=== PATIENT | female | born 1955 | race Caucasian/White ===

== ENCOUNTER 2022-04-04 00:29 | Emergency (ER) | payer MEDICARE, SELFPAY ==
[2022-04-04 00:29] VITALS: BP 154/92; PULSE 88; RESP 18; TEMP 36.2; O2SAT 99; BMI 31.1
--- NOTE | 2022-04-04 00:35 | CT_ITS ---
STUDY: CT HEAD STROKE PROTOCOL W/O CONTRAST INJECTION REASON FOR EXAM: Female, 66 years old. trauma/fall RADIATION DOSAGE (If Supplied By Facility): CTDIvol = ( 44.99 ) mGy, DLP = ( 866.41 ) mGycm TECHNIQUE: Transaxial CT imaging of the brain was performed without administration of intravenous contrast material. Individualized dose optimization techniques were used for this CT. COMPARISON: No relevant priors. FINDINGS: BRAIN: Normal samson/white matter differentiation. VENTRICLES: No hydrocephalus. EXTRA-AXIAL SPACES: No hemorrhages, fluid collections, or masses. CALVARIUM/SKULL BASE: Normal. FACE/SINUSES: Visualized portions normal. SOFT TISSUES: Right periorbital soft tissue swelling. OTHER: None. CT/Brain/Head without Contrast IMPRESSION: No intracranial hemorrhage or depressed calvarial fracture. Electronically Signed: Larry Saba MD at 1:19 EDT ,
[2022-04-04] MEDS: fentaNYL 100 MCG/2 ML Ampul 50 MCG IV (00:37)
--- NOTE | 2022-04-04 00:37 | ED.VIS.FALL ---
HPI HPI - Fall History of Present Illness Chief Complaint: Fall Informant: patient, family and EMS Limited: intoxicated Occured/Mechanism Occurred: Today (JPTA) Mechanism/Context: Yes slip Narrative: in gravel trying to get into car after drinking heavily Usually ambulates: Without assistance Pain/Injury Location: R upper arm Pain Location: face Quality of Pain: Throbbing Current Severity: Severe Maximum Severity: Severe Worsened by: moving RUE Relieved by: remaining still Associated Symptoms Associated Symptoms: Positive for Loss of function (RUE); Negative for Parasthesias, Weakness, Inability to ambulate or Loss of consciousness Narrative Narrative: Patient drinking with her friend sin, they were trying to help her get into the car because she was intoxicated, she had trouble and slipped on the gravel, hitting her arm on the car and striking her head on the gravel/ground. No loss of consciousness, but she does not remember details however she is intoxicated. She is really just complaining of pain in her right upper arm, pointing to the mid humerus. [id number]. PFSH PFS Medical History Arthritis Hypertension Home Medications oxycodone-acetaminophen 5 mg-325 mg tablet 1 tab PO Q6H PRN PRN Pain 3 days #12 TABLETS 04/04/22 [Rx Last Taken Unknown] Allergy/AdvReac Type Severity Reaction Status Date / Time No Known Allergies Allergy Verified 04/04/22 00:33 Social History Smoking Status: Current every day smoker tobacco type: cigarettes ROS ROS ED Constitutional Constitutional ED: Denies chills or fever(s) Eyes Eyes: Denies change in vision or diplopia ENT ENT ED: Reports facial pain; Denies ear pain, epistaxis or rhinorrhea Cardiovascular Cardiovascular: Denies chest pain or palpitations Respiratory/Chest Respiratory/Chest: Denies cough or dyspnea Gastrointestinal Gastrointestinal: Denies abdominal pain, diarrhea, melena, nausea or vomiting Genitourinary Genitourinary ED: Denies dysuria or hematuria Musculoskeletal Musculoskeletal: Reports extremity pain; Denies back pain or neck pain Integumentary Denies abscess, Abrasions, laceration or rash Neurologic Neurologic: Denies confusion, headache(s), paresthesias or weakness EXAM Physical Exam Const Vital Signs: 04/04/22 00:29 04/04/22 00:33 Temperature 97.2 F L Temperature Source Temporal Pulse Rate 88 Respiratory Rate 18 Respiratory Effort Normal Respiratory Pattern Normal Blood Pressure 154/92 H Blood Pressure Mean 112 Pulse Ox 99 Oxygen Delivery Method Room Air Positive well nourished and well developed Constitutional Narrative: Grossly intoxicated, alert, not confused General Appearance ED: well developed and NAD HEENT Reports TM's clear and nasal mucous membranes and turbinates normal HEENT Narrative: Facial laceration 2 cm full-thickness linear for the most part, to the right of the nasal bridge and above it, with associated hematoma at the superior orbital brim. No other signs of head trauma. Face and Sinus: facial tenderness Tympanic Membrane ED: Yes TM's clear Eyes PERRL and EOMs intact bilaterally Visual Acuity: other Other Details: no entrapment or pain with extraocular movements Neck full ROM and supple General: Negative for tenderness Chest Wall inspection of chest normal and palpation of chest normal Chest: symmetrical chest wall rise; Negative for crepitus or tenderness Resp normal respiratory effort and clear to auscultation bilaterally Percussion: other equal BS bilat Cardio no murmurs Rate: regular rate Rhythm: regular rhythm GI normal to inspection, nondistended, normoactive bowel sounds, soft to palpation and non-tender Back/Spine normal ROM Cervical Spine: Negative for cervical spine tenderness Thoracic Spine / Upper Back: Negative for thoracic spinal tenderness Lumbar Spine / Lower Back: Negative for lumbar spinal tenderness Extremity Extremity Narrative: Gross deformity, swelling, tenderness right mid humerus. No tenderness proximally at the acromioclavicular joint/shoulder or at the elbow. Limited range of motion holding in position of comfort splinted by squad. Neurovascular intact distally with 2+/4 radial pulse. General Extremety ED: Yes tenderness Neuro oriented x3, CN's II-XII intact bilaterally, moves all extremities, no focal motor deficits and no sensory deficits noted [place] Coma Scale: document GCS findings Spontaneous Obeys Commands Oriented 15 Sensorium / Orientation: awake and alert Psych mental status grossly normal and thought process normal Skin no wounds Lesions: no lesions Rashes: no rashes MDM MDM MDM Narrative Medical decision making narrative: Head CT performed given evidence of trauma and intoxication it is unremarkable. Three-view x-ray series of the right humerus on my interpretation shows a displaced overriding midshaft fracture, clinically it is closed. I discussed with Dr. Noble with orthopedics who agrees with sling and swath, analgesics, outpatient follow-up. She is intoxicated, she was given fentanyl prior to getting x-rays, and she tolerated this well without any lethargy and we watched her in the ER for an hour or 2 prior to discharging her with her friend who is clinically sober. Her laceration was repaired. During this and afterwards, she states her arm is still really hurting. Before getting her in a sling, I am ordering another dose of morphine, nursing will watch her for the recommended period of time prior to discharge. Radiography Diagnostic Testing: Clinical Impression(s) from Imaging Studies Brain CT 04/04/22 00:35 IMPRESSION: No intracranial hemorrhage or depressed calvarial fracture. Electronically Signed: Larry Saba MD at 1:19 EDT , Procedures Lacerations face: Length: 2 cm Depth: Sub Q Shape: irreg, mostly linear Prep: Sterile Conditions and Chlorhexadine Laceration repair: Lidocaine with epi (1.5 cc) and Local Irrigated (ml): 40 Number of Sutures/Magy: 4 Suture Information: Ethilon, Simple and 6-0 Comment: clean lac; no contam. Discharge Plan Triage Chief Complaint: Fall ED Provider: Narendra Jay Dx/Rx/DC Orders Clinical Impression: Closed displaced oblique fracture of shaft of right humerus, Laceration of face, Closed head injury without loss of consciousness, Alcohol intoxication, Accidental fall Instructions: Understanding a Humerus Fracture, ED Laceration: All Closures Prescriptions: New oxycodone-acetaminophen [oxycodone-acetaminophen] 5-325 mg tablet 1 tab PO Q6H PRN PRN (Reason: Pain) 3 Days Qty: 12 0RF Primary Care Provider: [facility] SIM Referrals: Rigoberto Noble DO [Med Staff - Active Staff] - As soon as possible [facility],Out of [Non-Staff] - 5 Days for suture removal Disposition Disposition: Home, Self Care
--- NOTE | 2022-04-04 01:00 | RAD_ITS ---
INDICATION: fall/injury EXAMINATION/TECHNIQUE: X-RAY - RIGHT XR Humerus Min 2 Views 3 VIEWS COMPARISON: None. FINDINGS: SOFT TISSUES: No soft tissue swelling or gas. No radiopaque foreign body. BONES/JOINTS: Mildly displaced spiral fracture of the proximal humeral diaphysis extending to the humeral neck. RAD/Humerus min 2 Views IMPRESSION: Mildly displaced spiral fracture of the proximal humerus. Electronically Signed: Larry Saba MD at 1:45 EDT ,
[2022-04-04] MEDS: Morphine 4 MG/ML Syringe IV (01:53)
[2022-04-04 02:04] VITALS: BP 114/81; PULSE 75; RESP 16; O2SAT 96; O2SAT 98
== END 2022-04-04 02:32 | disposition home or self-care (01) ==
PROVIDERS: Emergency Provider Emergency Medicine; Visit Provider Emergency Medicine
DX: S01.81XA Laceration without foreign body of other part of head, initial encounter (principal); F10.129 Alcohol abuse with intoxication, unspecified; S42.331A Displaced oblique fracture of shaft of humerus, right arm, initial encounter for closed fracture; F17.210 Nicotine dependence, cigarettes, uncomplicated; I10 Essential (primary) hypertension; W01.0XXA Fall on same level from slipping, tripping and stumbling without subsequent striking against object, initial encounter
CPT/HCPCS: 12011; 70450; 73060; 96374; 96375; 99285; A4216